=== PATIENT | male | born 1960 | race African-American/Black ===

== ENCOUNTER 2016-11-24 13:27 | Emergency (ER) | payer OTHER ==
[~2016-11-24] VITALS: Ht 180.3 cm; Wt 94.0 kg
[~2016-11-24 13:27] MED LIST: FIORIC PO; PROP1TAB66 PO
[2016-11-24 13:31] VITALS: BP 149/93; PULSE 72; RESP 16; TEMP 98.2; O2SAT 97
[2016-11-24] MEDS ORDERED: TETANUS/DIPHTHERIA TOXOID ADULT 0.5 ML VIAL IM ONE (14:00)
[2016-11-24] MEDS ORDERED: KETOROLAC TROMETHAMINE 60 MG/2 ML (IM) VIAL IM ONE (14:00)
[2016-11-24] MEDS ORDERED: METHOCARBAMOL 500 MG TAB PO SCH (14:00)
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
[2016-11-24 15:02] VITALS: RESP 16
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
[2016-11-24] MEDS ORDERED: IBUP-232 PO (15:15)
[2016-11-24] MEDS ORDERED: ROBA750T PO (15:15)
== END 2016-11-24 15:20 | disposition home or self-care (01) ==
LOC: PHEFT 13:27
DX: S39.012A Strain of muscle, fascia and tendon of lower back, initial encounter (principal); S50.811A Abrasion of right forearm, initial encounter; S70.211A Abrasion, right hip, initial encounter; R51 Headache; I10 Essential (primary) hypertension; Z23 Encounter for immunization; V23.4XXA Motorcycle driver injured in collision with car, pick-up truck or van in traffic accident, initial encounter; Y93.9 Activity, unspecified; Y92.9 Unspecified place or not applicable; Y99.9 Unspecified external cause status
CPT/HCPCS: 72100; 90471; 90714; 96372; 99284; J1885

== ENCOUNTER 2017-04-21 00:44 | Emergency (ER) | payer OTHER ==
[~2017-04-21] VITALS: Ht 180.3 cm; Wt 94.0 kg
[~2017-04-21 00:44] MED LIST changes: -FIORIC PO; +IBUP-232 PO; -PROP1TAB66 PO; +ROBA750T PO
[2017-04-21 00:53] VITALS: BP 153/83; PULSE 84; RESP 12; TEMP 100.3; O2SAT 97
[2017-04-21 00:55] VITALS: BP 153/83; PULSE 84; RESP 18; TEMP 100.3; O2SAT 97
[2017-04-21] MEDS ORDERED: DOXY100C PO (01:35)
[2017-04-21] MEDS ORDERED: BACT800T5 PO (01:35)
--- NOTE | 2017-04-21 01:36 | PD ---
HPI Chief Complaint: boil on buttocks Time Seen by Provider: 01:25 Travel History International Travel<30 days: No Contact w/Intl Traveler<30days: No Traveled to known affect area: No History of Present Illness HPI The patient is a 56-year-old male that Hemant noticed a painful area on his right buttocks. He knows that it is infected. He does have a temperature of 100.3 here. He does not have a history of diabetes. He denies any trauma or stings to the area, he does not know why it came in the place that it did. His last tetanus shot was approximately one year ago. PFSH Past Medical History Hx Anticoagulant Therapy: No Arthritis: No Asthma: No Autoimmune Disease: No Blood Disorders: No Anxiety: No Depression: No Heart Rhythm Problems: No Cancer: No Cardiovascular Problems: Yes (HTN) High Cholesterol: No Chemotherapy: No Chest Pain: No Congestive Heart Failure: No COPD: No Cerebrovascular Accident: No Diabetes: No Diminished Hearing: No Endocrine: No GERD: No Glaucoma: No Genitourinary: No Headaches: No Hepatitis: No Hiatal Hernia: No Hypertension: No Immune Disorder: No Kidney Stones: No Musculoskeletal: No Neurologic: No Psychiatric: No Reproductive: No Respiratory: No Immunizations Current: Yes Migraines: Yes Myocardial Infarction: No Radiation Therapy: No Renal Failure: No Seizures: No Sickle Cell Disease: No Sleep Apnea: No Thyroid Disease: No Ulcer: No Past Surgical History Abdominal Surgery: No AICD: No Arteriovenous Shunt: No Cardiac Surgery: No Ear Surgery: No Endocrine Surgery: No Eye Surgery: No Genitourinary Surgery: No Gynecologic Surgery: No Insulin Pump: No Joint Replacement: No Neurologic Surgery: No Oral Surgery: No Pacemaker: No Thoracic Surgery: No Other Surgery: Yes Social History Alcohol Use: No Tobacco Use: No Substance Use: No Allergies-Medications (Allergen,Severity, Reaction): Coded Allergies: shellfish derived (Verified Allergy, Severe, 04/21/17) Reported Meds & Prescriptions Reported Meds & Active Scripts Active Bactrim DS (Sulfamethoxazole-Trimethoprim) 800-160 Mg Tab 1 Tab PO BID Doxycycline Hyclate 100 Mg Cap 100 Mg PO BID Ibuprofen 600 Mg Tab 600 Mg PO Q8HR PRN Robaxin (Methocarbamol) 750 Mg Tab 750 Mg PO Q8HR Review of Systems Except as stated in HPI: all other systems reviewed are Neg Physical Exam Narrative GENERAL: Well-nourished, well-developed patient in moderate apparent distress with his right buttocks infection pain. His vital signs show temperature 100.3 with blood pressure 153/83.. SKIN: Focused skin assessment warm/dry. The right buttocks shows an area of induration about 10 cm in diameter. In the center is a small pustule and tiny abscess. No red streak is noted. HEAD: Normocephalic. EYES: No scleral icterus. No injection or drainage. NECK: Supple, trachea midline. No JVD or lymphadenopathy. CARDIOVASCULAR: Regular rate and rhythm without murmurs, gallops, or rubs. RESPIRATORY: Breath sounds equal bilaterally. No accessory muscle use. GASTROINTESTINAL: Abdomen soft, non-tender, nondistended. MUSCULOSKELETAL: No cyanosis, or edema. BACK: Nontender without obvious deformity. No CVA tenderness. Data Data Last Documented VS Vital Signs Date Time Temp Pulse Resp B/P (MAP) Pulse Ox O2 Delivery O2 Flow Rate FiO2 04/21/17 00:55 100.3 84 18 153/83 (106) 97 Orders Orders Lidocaine 1% Inj (50 Ml) (Xylocaine 1% I (04/21/17 01:45) [facility] Medical Decision Making Medical Screen Exam Complete: Yes Emergency Medical Condition: Yes Medical Record Reviewed: Yes Differential Diagnosis Abscess, cellulitis, necrotizing fasciitis-highly unlikely Narrative Course The patient has a small abscess with cellulitis. The area of induration is because pus is dissected in an area 10 cm in diameter. The abscess is poorly walled off. The patient will be put on doxycycline and Septra, he will be given the first doses tonight. He should return immediately if worse, it was explained that this was poorly walled off and can get worse. Procedures Procedure Narrative The area was prepped with ChloraPrep. Lidocaine was infiltrated around the abscess in a field block. A #11 blade was used to incise the abscess and a small amount of pus was recovered. A much greater amount of pus was recovered by milking the tissues around the abscess in the indurated area. The small abscess cavity was cleaned with peroxide. The patient tolerated the procedure well. Diagnosis Primary Impression: Cellulitis and abscess of buttock Additional Instructions: As we discussed, return as needed if worse or not better. This type of infection can get worse. Sit in a tub with warm water twice daily. Also it is useful to put a heating pad on its lowest setting an interposed a towel between your skin and the pad. This brings blood to the area and helps the tissue drain the pus. Med/Other Pt SpecificInfo: Prescription(s) given Scripts Sulfamethoxazole-Trimethoprim (Bactrim DS) 800-160 Mg Tab 1 TAB PO BID for Infection, #20 TAB 0 Refills Prov: Clifford Padilla MD 04/21/17 Doxycycline Hyclate (Doxycycline Hyclate) 100 Mg Cap 100 MG PO BID for Infection, #20 CAP 0 Refills Prov: Clifford Padilla MD 04/21/17 Disposition: 01 DISCHARGE HOME Condition: Stable Clifford Padilla MD Apr 21, 2017 01:36
[2017-04-21] MEDS ORDERED: PERC5TAB12 PO (01:41)
[2017-04-21] MEDS ORDERED: oxyCODONE/ACETAMINOPHEN 5 MG/325 MG TAB PO ONE (01:45)
[2017-04-21] MEDS ORDERED: LIDOCAINE HCL 1% 50 ML VIAL INFIL ONE (01:45)
[2017-04-21] MEDS ORDERED: oxyCODONE/ACETAMINOPHEN 7.5 MG/325 MG TAB PO ONE (01:45)
[2017-04-21 01:54] VITALS: BP 172/86
== END 2017-04-21 02:04 | disposition home or self-care (01) ==
LOC: PHED 00:44
DX: L02.31 Cutaneous abscess of buttock (principal); A49.02 Methicillin resistant Staphylococcus aureus infection, unspecified site
CPT/HCPCS: 10060; 86403; 87070; 87186

== ENCOUNTER 2017-04-27 09:58 | Emergency (ER) | payer OTHER ==
[~2017-04-27] VITALS: Ht 181.6 cm; Wt 93.0 kg
[~2017-04-27 09:58] MED LIST changes: +BACT800T5 PO; +DOXY100C PO; +PERC5TAB12 PO
[2017-04-27 10:03] VITALS: BP 127/80; PULSE 71; RESP 16; TEMP 98.6; O2SAT 98
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
== END 2017-04-27 10:56 | disposition home or self-care (01) ==
LOC: PHED 09:58
DX: L02.31 Cutaneous abscess of buttock (principal); Z86.79 Personal history of other diseases of the circulatory system; Z86.69 Personal history of other diseases of the nervous system and sense organs
CPT/HCPCS: 99284